=== PATIENT | female | born 1980 | race African-American/Black ===

== ENCOUNTER 2018-01-01 15:31 | Emergency (ER) | payer OTHER ==
[~2018-01-01] VITALS: Ht 157.5 cm; Wt 78.0 kg
[2018-01-01] MEDS ORDERED: IBUPROFEN 600MG TABLET PO ONE (18:45)
[2018-01-01] MEDS ORDERED: DIPHENHYDRAMINE 50MG/ML VIAL IM ONE (18:45)
[2018-01-01] MEDS ORDERED: CEFTRIAXONE SODIUM 1 G/VIAL IM ONE (18:45)
[2018-01-01] MEDS ORDERED: DEXAMETHASONE 10 MG/ML VIAL IM ONE (18:45)
[2018-01-01] MEDS ORDERED: LIDOCAINE HCL 1% 20ML VIAL (Pyxis) INJ INFIL ONE (18:45)
[2018-01-01 18:58] VITALS: BP 149/87
== END 2018-01-01 19:16 | disposition home or self-care (01) ==
LOC: ER 16:32
DX: T63.481A Toxic effect of venom of other arthropod, accidental (unintentional), initial encounter (principal); L03.116 Cellulitis of left lower limb; Z91.013 Allergy to seafood; Y92.89 Other specified places as the place of occurrence of the external cause
CPT/HCPCS: 96372; 99283; J0696; J1100; J1200; J3490

== ENCOUNTER 2018-03-10 21:18 | Emergency (ER) | payer MEDICAID ==
[~2018-03-10] VITALS: Ht 154.9 cm; Wt 81.0 kg
[2018-03-11] MEDS ORDERED: CEFTRIAXONE SODIUM 1 G/VIAL IM ONE (00:15)
[2018-03-11] MEDS ORDERED: TRAMADOL HCL/ACETAMINOPHEN 37.5/325MG TABLET PO ONE (00:15)
[2018-03-11] MEDS ORDERED: LIDOCAINE HCL 1% 20ML VIAL (Pyxis) INJ INFIL ONE (00:15)
[2018-03-11] MEDS ORDERED: DIPHENHYDRAMINE 25MG CAPSULE PO ONE (00:15)
[2018-03-11] MEDS ORDERED: LIDOCAINE HCL/PF 1% 10 MG/ML 5ML VIAL IJ SCH (00:36)
[2018-03-11 00:51] VITALS: BP 128/77
== END 2018-03-11 00:54 | disposition home or self-care (01) ==
LOC: ER 21:18
DX: S40.862A Insect bite (nonvenomous) of left upper arm, initial encounter (principal); L03.114 Cellulitis of left upper limb; W57.XXXA Bitten or stung by nonvenomous insect and other nonvenomous arthropods, initial encounter; Y93.89 Activity, other specified; Y92.89 Other specified places as the place of occurrence of the external cause; Z91.013 Allergy to seafood
CPT/HCPCS: 96372; 99284; J0696; J3490; Q0163

== ENCOUNTER 2021-03-18 23:52 | Emergency (ER) | payer MEDICAID ==
[~2021-03-18] VITALS: Ht 157.5 cm; Wt 66.0 kg
[2021-03-19] MEDS ORDERED: ACETAMINOPHEN WITH CODEINE 300/30MG TABLET PO ONE (00:30)
[2021-03-19] MEDS ORDERED: LIDOCAINE HCL/PF 1% 10 MG/ML 5ML VIAL INFIL ONE (00:30)
[2021-03-19] MEDS ORDERED: BACITRACIN ZINC OINT UDPKT TOP ONE (00:30)
[2021-03-19] MEDS ORDERED: TETANUS, DIPHTHERIA, PERTUSSIS VAC/PF 0.5ML (>7YR OLD) IM ONE (00:30)
[2021-03-19 00:42] VITALS: BP 129/83
== END 2021-03-19 03:49 | disposition left against medical advice (07) ==
LOC: ER 23:52
DX: S01.511A Laceration without foreign body of lip, initial encounter (principal); S00.81XA Abrasion of other part of head, initial encounter; Y04.2XXA Assault by strike against or bumped into by another person, initial encounter; Y93.89 Activity, other specified; Y92.89 Other specified places as the place of occurrence of the external cause
CPT/HCPCS: 12011; 90471; 90715; 99283; J3490

== ENCOUNTER 2021-03-21 08:33 | Emergency (ER) | payer MEDICAID ==
[~2021-03-21] VITALS: Ht 152.4 cm; Wt 66.0 kg
[2021-03-21 08:34] VITALS: BP 108/65
== END 2021-03-21 08:58 | disposition home or self-care (01) ==
LOC: ER 08:33
DX: Z48.00 Encounter for change or removal of nonsurgical wound dressing (principal)
CPT/HCPCS: 99281

== ENCOUNTER 2021-03-25 07:50 | Emergency (ER) | payer MEDICAID ==
[~2021-03-25] VITALS: Ht 152.4 cm; Wt 65.0 kg
[2021-03-25 08:33] VITALS: BP 128/74
== END 2021-03-25 08:35 | disposition home or self-care (01) ==
LOC: ER 07:50
DX: Z48.02 Encounter for removal of sutures (principal)
CPT/HCPCS: 99281; Z7610